=== PATIENT | male | born 1995 | race Caucasian/White ===

== ENCOUNTER 2019-12-23 13:40 | Emergency (ER) | payer SELFPAY ==
[2019-12-23 14:05] VITALS: BP 149/88; PULSE 100; RESP 18; TEMP 37.2; O2SAT 99
[2019-12-23 14:10] VITALS: RESP 18
[2019-12-23 14:36] LABS: Add Urine Microscopic? NO; Appearance Urine Clear (Clear); Bilirubin Urine Negative (Negative); Blood Urine Negative (Negative); Color Urine Straw (Yellow); Glucose Urine UA Negative (Negative); Ketones Urine Negative (Negative); Leukocyte Esterase Ur Negative LEU/UL (Negative); Nitrate Urine Negative (Negative); Protein Urine Negative (Negative); Specific Grav Ur <= 1.005 (1.010-1.020); Urobilinogen Urine 0.2 mg/dL (0.2-1.0); pH Urine 5.5 (5.0-8.0)
[2019-12-23 14:40] LABS: Basophils Absolute Auto 0.04 K/mm3 (0.00-0.10); Basophils Percent Auto 0.5 % (0.0-1.0); Eosinophils Absolute Auto 0.13 K/mm3 (0.02-0.50); Eosinophils Percent Auto 1.7 % (1.0-6.0); Hemoglobin 15.8 g/dL (14.0-18.0); Immature Granulocyte Absolute 0.08 K/mm3 (0.00-0.00); Lymphocytes Absolute Auto 1.64 K/mm3 (1.10-4.50); Lymphocytes Percent Auto 21.2 % (18.0-42.0); Mean Corpuscular HGB Conc 35.1 g/dL (32.0-36.0); Mean Corpuscular Hemoglobin 29.1 pg (27.0-31.0); Mean Corpuscular Volume 82.9 fL (78.0-102.0); Monocytes Absolute Auto 0.54 K/mm3 (0.10-0.90); Neutrophils Absolute Auto 5.3 K/mm3 (1.7-7.2); Neutrophils Percent Auto 68.6 % (50.0-70.0); Platelet Count Result 267 K/mm3 (150-420); Red Blood Count 5.43 M/mm3 (4.70-6.10); White Blood Count 7.8 K/mm3 (4.8-10.8)
[2019-12-23 14:55] LABS: Influenza Control Valid (Valid)
[2019-12-23 14:57] LABS: Alanine Aminotransferase 35 U/L (16-63); Albumin Level 4.9 g/dL (3.4-5.0); Alkaline Phosphatase 64 U/L (46-116); Anion Gap 14.4 mmol/L (7-16); Aspartate Amino Transferase 18 U/L (15-37); Bilirubin,Total 0.7 mg/dL (0.00-1.00); Blood Urea Nitrogen 10 mg/dL (7-18); Calcium 9.4 mg/dL (8.5-10.1); Carbon Dioxide 28 mmol/L (21-32); Chloride 104 mmol/L (98-108); Estimated CRCL calculation 95 ml/min; Estimated Glomerular Filt Rate > 60; Glucose 124 mg/dL (70-99); Osmolality Calculated 294 mOsm/kg (285-295); Potassium 4.4 mmol/L (3.5-5.1); Sodium 142 mmol/L (136-145); Total Protein 8.3 g/dL (6.4-8.2)
--- NOTE | 2019-12-23 16:03 | ED.GENADULT ---
HPI - General Adult General Chief complaint: Unspecified Stated complaint: dizzness light headed and nausea History of Present Illness HPI narrative: this 24-year-old male complains of having a weird feeling in his head, tingling in the temporal area. This occurs multiple times per day, lasts for about 3 hours. It is associated with feeling his head is spinning but not actually having things around him spin. When he has these symptoms he becomes nauseated. He denies decreased hearing or associated tinnitus. No nasal congestion or cough. He did have a sore throat 2 days ago which lasted for a couple of hours. He denies numbness weekly weakness or difficulty with walking. He has a very long history of occasional tinnitus but nothing new). Related Data Allergies Allergy/AdvReac Type Severity Reaction Status Date / Time No Known Allergies Allergy Verified 11/23/19 11:39 [facility] Social History Social History (Updated 11/23/19 @ 11:40 by Sonia Zacarias MA) Smoking status: Never smoker Alcohol intake: never Substance use: never Substance use type: does not use Gender identity (if verbalized by the patient): Male Spiritual care concerns: No Course Vital Signs Vital signs: Vital Signs Temperature 37.2 C 12/23/19 14:05 Pulse Rate 100 12/23/19 14:05 Respiratory Rate 18 12/23/19 14:05 Blood Pressure 149/88 H 12/23/19 14:05 Pulse Oximetry 99 12/23/19 14:05 Temperature 37.2 C 12/23/19 14:05 Pulse Rate 104 H 12/23/19 16:12 Respiratory Rate 20 12/23/19 16:12 Blood Pressure 142/80 H 12/23/19 16:12 Pulse Oximetry 97 12/23/19 16:12 Medical Decision Making Vital Signs Vital Signs: Vital Signs Temperature 37.2 C 12/23/19 14:05 Pulse Rate 100 12/23/19 14:05 Respiratory Rate 18 12/23/19 14:05 Blood Pressure 149/88 H 12/23/19 14:05 Pulse Oximetry 99 12/23/19 14:05 Temperature 37.2 C 12/23/19 14:05 Pulse Rate 104 H 12/23/19 16:12 Respiratory Rate 20 12/23/19 16:12 Blood Pressure 142/80 H 12/23/19 16:12 Pulse Oximetry 97 12/23/19 16:12 Lab Data Result diagrams: 12/23/19 14:35 12/23/19 14:35 Labs: Lab Results 12/23/19 12/23/19 12/23/19 Range/Units 14:17 14:22 14:35 WBC 7.8 (4.8-10.8) K/mm3 RBC 5.43 (4.70-6.10) M/mm3 Hgb 15.8 (14.0-18.0) g/dL Hct 45.0 (40.0-54.0) % MCV 82.9 (78.0-102.0) fL MCH 29.1 (27.0-31.0) pg MCHC 35.1 (32.0-36.0) g/dL RDW 12.0 (11.6-14.4) % Plt Count 267 (150-420) K/mm3 MPV 10.0 (8.7-11.0) fl Immature Gran % (Auto) 1.0 H (0.0-0.0) % Neut % (Auto) 68.6 (50.0-70.0) % Lymph % (Auto) 21.2 (18.0-42.0) % [place] % (Auto) 7.0 (2.0-11.0) % Eos % (Auto) 1.7 (1.0-6.0) % Baso % (Auto) 0.5 (0.0-1.0) % Lymph # (Auto) 1.64 (1.10-4.50) K/mm3 [place] # (Auto) 0.54 (0.10-0.90) K/mm3 Eos # (Auto) 0.13 (0.02-0.50) K/mm3 Baso # (Auto) 0.04 (0.00-0.10) K/mm3 Abs Immat Gran (auto) 0.08 H (0.00-0.00) K/mm3 Absolute Neuts (auto) 5.3 (1.7-7.2) K/mm3 Absolute Nucleated RBC 0.00 (0.00-0.00) K/mm3 Nucleated RBC % 0.0 (0-0.0) % Sodium (136-145) mmol/L Potassium (3.5-5.1) mmol/L Chloride (98-108) mmol/L Carbon Dioxide (21-32) mmol/L Anion Gap (7-16) mmol/L BUN (7-18) mg/dL Creatinine (0.70-1.30) mg/dL Estim Creat Clear Calc ml/min Estimated GFR (59 - ) Glucose (70-99) mg/dL Calculated Osmolality (285-295) mOsm/kg Calcium (8.5-10.1) mg/dL Total Bilirubin (0.00-1.00) mg/dL AST (15-37) U/L ALT (16-63) U/L Alkaline Phosphatase (46-116) U/L Total Protein (6.4-8.2) g/dL Albumin (3.4-5.0) g/dL Urine Color Straw (Yellow) Urine Appearance Clear (Clear) Urine pH 5.5 (5.0-8.0) Ur Specific [place] <= 1.005 L (1.010-1.020) Urine Protein Negative (Negative) Urine Glucose (UA) Negative (Neg
[2019-12-23 16:12] VITALS: BP 142/80; PULSE 104; RESP 20; O2SAT 97
== END 2019-12-23 16:12 | disposition home or self-care (01) ==
PROVIDERS: Emergency Provider Family Medicine
DX: H81.20 Vestibular neuronitis, unspecified ear (principal)
CPT/HCPCS: 36415; 80053; 81003; 85025; 87804; 99283

== ENCOUNTER 2019-12-30 20:19 | Emergency (ER) | payer SELFPAY ==
[2019-12-30 20:25] VITALS: BP 143/95; PULSE 96; RESP 16; TEMP 36.7; O2SAT 98
--- NOTE | 2019-12-30 20:36 | ED.DIZZY ---
HPI - Dizziness General Chief Complaint: Dizziness Stated Complaint: dizzy/weak Time Seen by Provider: 12/30/19 20:36 Source: patient Mode of arrival: ambulatory Limitations: no limitations History of Present Illness HPI Narrative: 24-year-old man comes in today complaining of dizziness that makes him feel like he is spinning, nausea, vomiting and weakness. He states he had similar symptoms a few weeks ago but the symptoms he had today while driving to [place], were much worse. He could only drive for short distances. He had cough and cold symptoms last week and it made his ears feel like they were full and he had decreased hearing but he has improved since. He states that he has a history of ringing in his ears. MD elicited complaint: dizziness and vertigo Onset (ago): day(s) Timing: sudden onset and episodic Severity: severe Description: room spinning Context: recent illness History of similar symptoms: Yes Exacerbating factors: movement/ambulation Relieving factors: remaining still Associated symptoms: nausea, vomiting and weakness Related Data Allergies Allergy/AdvReac Type Severity Reaction Status Date / Time No Known Allergies Allergy Verified 11/23/19 11:39 Review of Systems Constitutional: Constitutional: Denies chills, Denies fever(s) and Reports weakness Eyes: Eyes: Denies change in vision and Denies photophobia ENT: Denies dysphagia, Denies nasal congestion and Denies sore throat Cardiovascular: Cardiovascular: Denies chest pain and Denies radiating jaw, neck or arm pain Respiratory: Respiratory: Denies cough, Denies dyspnea and Denies wheezing Gastrointestinal: Gastrointestinal: Denies abdominal pain, Denies diarrhea, Reports nausea and Reports vomiting Musculoskeletal: Musculoskeletal: Denies back pain, Denies arthralgias and Denies joint swelling Integumentary/Breasts: Skin/Breast: Denies pruritus, Denies erythema and Denies rash Neurologic: Reports vertigo, Denies syncope, Denies focal weakness, Denies numbness and Reports weakness Psychiatric: Psychiatric: Denies anxiety and Denies depression Hematologic/Lymphatic: Hematologic/Lymphatic: Denies easy bleeding and Denies easy bruising Allergic/Immunologic: Allergic/Immunologic: Denies lip swelling and Denies wheezing PMFSH Past Medical History Medical History (Updated 12/30/19 @ 20:57 by Jacky Larkin MD) Back injury Surgical History Surgical History No history of previous surgery Social History Social History Smoking status: Never smoker Alcohol intake: never Substance use: never Substance use type: does not use Gender identity (if verbalized by the patient): Male Spiritual care concerns: No Exam Const: General: healthy appearing, no acute distress and alert Orientation/consciousness: patient oriented x3 HENMT: Ears: TM's normal bilaterally and EAC's normal Face and sinus: normal facial exam Mouth: Yes Normal oral and palatal mucosa present and Yes moist mucous membranes Throat: posterior oropharynx normal and uvula midline Eyes: Conjunctivae: conjunctivae normal Pupils: Equal, round and reactive pupils present EOM: EOMs intact bilaterally Neck: Neck: normal visual inspection and no lymphadenopathy Resp: Effort & Inspection: normal respiratory effort and not labored Auscultation: clear to auscultation bilaterally, no rales, no rhonchi and no wheezes Cardio: Rate: regular rate Rhythm: regular rhythm Heart sounds: no murmurs GI: Other: nontender, nondistended, no masses Skin: General skin exam: normal color, no jaundice and no pallor Rashes: no rashes Neuro: General: patient oriented x3, moves all extremities, no focal motor deficits and CN's II-XI intact bilaterally Speech: normal speech Other: normal [id number], normal gait Extrem: General: normal to inspection and no clubbi
[2019-12-30 21:08] VITALS: RESP 14; O2SAT 99
== END 2019-12-30 21:09 | disposition home or self-care (01) ==
PROVIDERS: Emergency Provider Emergency Medicine
DX: R42 Dizziness and giddiness (principal)
CPT/HCPCS: 99283

== ENCOUNTER 2020-03-02 13:17 | Emergency (ER) | payer SELFPAY ==
--- NOTE | ~2020-03-02 | CT_ITS ---
EXAMINATION: CT abdomen pelvis w con DATE: 03/02/2020 14:42 INDICATION: Mid abdominal pain and right lower quadrant tenderness. TECHNIQUE: Computed tomography (CT) of the abdomen and pelvis was performed . with 100 mL Omnipaque-3 50 intravenous contrast. Automated exposure control and iterative reconstruction technique were emplo yed. The dose-length product was 574.59 mGy-cm. COMPARISON: None FINDINGS: Lung bases are clear. Heart size is normal. No pericardial or pleural effusion. Liver, gallbladder, s pleen, pancreas, bilateral adrenal glands and kidneys are normal. 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 No bowel obstruction. The gas-filled appendix is normal. Bladder is normal. No free intr aperitoneal gas or fluid. No pathologically enlarged abdominal or pelvic lymphadenopathy. Bones are u nremarkable. IMPRESSION: 1. No acute intra-abdominal/pelvic process. Specifically the appendix and gallbladder are normal. 2. Intestinal malrotation. No volvulus or obstruction. Reviewed, dictated and finalized at location A. IMPRESSION: 1. No acute intra-abdominal/pelvic process. Specifically the appendix and gallb ladder are normal. 2. Intestinal malrotation. No volvulus or obstruction.
[2020-03-02 13:20] VITALS: BP 143/98; PULSE 97; RESP 18; TEMP 37.2; O2SAT 100
[2020-03-02 13:36] LABS: Basophils Percent Auto 0.5 % (0.2-1.2); Eosinophils Absolute Auto 0.2 K/mm3 (0-0.3); Eosinophils Percent Auto 2.4 % (0-4.4); Hematocrit 47.2 % (42.0-52.0); Hemoglobin 16.4 g/dL (14.0-18.0); Immature Granulocyte Absolute 0.05 K/mm3 (0.00-0.031); Immature Granulocyte Percent A 0.6 % (0-0.5); Lymphocytes Absolute Auto 2.67 K/mm3 (0.9-3.2); Lymphocytes Percent Auto 31.7 % (18.3-44.2); Mean Corpuscular HGB Conc 34.7 g/dl (32-36); Mean Corpuscular Hemoglobin 28.9 pg (26-34); Mean Corpuscular Volume 83.2 fl (80-100); Mean Platelet Volume 10.2 fl (7.4-10.4); Monocytes Absolute Auto 0.7 K/mm3 (0.1-0.6); Monocytes Percent Auto 7.7 % (2.6-8.5); Neutrophils Absolute Auto 4.8 K/mm3 (1.3-6.7); Neutrophils Percent Auto 57.1 % (45.5-73.1); Platelet Count Result 284 k/mm3 (150-375); Red Blood Count 5.67 M/mm3 (4.6-6.20); Red Cell Distribution Width 11.9 % (11.5-14.5); White Blood Count 8.4 K/mm3 (4.5-10.0)
--- NOTE | 2020-03-02 13:38 | ED.ABDPAIN ---
HPI - Abdominal Pain General Chief Complaint: Abdominal Pain Stated Complaint: abd pain Time Seen by Provider: 03/02/20 13:19 Source: patient Mode of arrival: ambulatory Limitations: no limitations History of Present Illness HPI narrative: Patient is a 24-year-old male who presents with acute onset periumbilical abdominal pain with a few loose stools patient notes generalized aching nothing is made it better or worse denies vomiting. Patient denies any similar current sick contacts and has not taken anything for symptoms Related Data Allergies Allergy/AdvReac Type Severity Reaction Status Date / Time No Known Allergies Allergy Verified 03/02/20 13:25 Review of Systems Review of Systems: All systems reviewed & are unremarkable except as noted in HPI and below PMFSH Past Medical History Medical History Back injury Surgical History Surgical History No history of previous surgery Social History Social History Smoking status: Never smoker Alcohol intake: never Substance use: never Substance use type: does not use Gender identity (if verbalized by the patient): Male Spiritual care concerns: No Exam Narrative: Exam Narrative: GENERAL: Well-appearing, well-nourished, and in no acute distress. HEAD: Normocephalic, atraumatic. EYES: PERRLA and EOMI. ENT: Nares clear, no rhinorrhea or epistaxis. Mucous membranes moist. CHEST: Clear to auscultation. No respiratory distress. No wheezes rales or rhonchi HEART: Regular rate and rhythm. No murmur heard. Normal peripheral pulses. ABDOMEN: Soft, right lower quadrant periumbilical tenderness to palpation, nondistended EXTREMITIES: Normal range of motion. No edema. SKIN: Warm, dry, no rash. NEURO: No focal deficits. Alert and oriented x3. PSYCH: Normal mood and affect. Course Course Emergency Course: Patient in the room in no distress aware of case findings treatment plan and diagnosis agreeing to follow-up as directed Vital Signs Vital signs: Vital Signs Temperature 99.0 F 03/02/20 13:20 Pulse Rate 97 03/02/20 13:20 Respiratory Rate 18 03/02/20 13:20 Blood Pressure 143/98 H 03/02/20 13:20 Pulse Oximetry 100 03/02/20 13:20 Temperature 99.0 F 03/02/20 13:20 Pulse Rate 97 03/02/20 13:20 Respiratory Rate 18 03/02/20 13:20 Blood Pressure 143/98 H 03/02/20 13:20 Pulse Oximetry 100 03/02/20 13:20 MDM - Abdominal Pain MDM Narrative Medical decision making narrative: Patient in the room in no distress aware of case findings treatment plan and diagnosis agreeing to follow-up as directed or to return if symptoms worsen or concerns. Patient is afebrile nontoxic-appearing no distress. Patient able to tolerate p.o. intake without difficulty Lab Data Result diagrams: 03/02/20 13:28 03/02/20 15:45 Labs: Lab Results 03/02/20 03/02/20 03/02/20 Range/Units 13:28 13:42 14:25 WBC 8.4 (4.5-10.0) K/mm3 RBC 5.67 (4.6-6.20) M/mm3 Hgb 16.4 (14.0-18.0) g/dL Hct 47.2 (42.0-52.0) % MCV 83.2 (80-100) fl MCH 28.9 (26-34) pg MCHC 34.7 (32-36) g/dl RDW 11.9 (11.5-14.5) % Plt Count 284 (150-375) k/mm3 MPV 10.2 (7.4-10.4) fl Immature Gran % (Auto) 0.6 H (0-0.5) % Neut % (Auto) 57.1 (45.5-73.1) % Lymph % (Auto) 31.7 (18.3-44.2) % [place] % (Auto) 7.7 (2.6-8.5) % Eos % (Auto) 2.4 (0-4.4) % Baso % (Auto) 0.5 (0.2-1.2) % Lymph # (Auto) 2.67 (0.9-3.2) K/mm3 [place] # (Auto) 0.7 H (0.1-0.6) K/mm3 Eos # (Auto) 0.2 (0-0.3) K/mm3 Baso # (Auto) 0.0 (0.0-0.1) K/mm3 Abs Immat Gran (auto) 0.05 H (0.00-0.031) K/mm3 Absolute Neuts (auto) 4.8 (1.3-6.7) K/mm3 Absolute Nucleated RBC 0.0 (0.0-0.012) K/mm3 Nucleated RBC % 0.0 (0.0-0.2) % Sodium
[2020-03-02 13:50] LABS: Add Urine Microscopic? NO; Appearance Urine Clear (Clear); Bilirubin Urine Negative (Negative); Blood Urine Negative (Negative); Color Urine Yellow (Yellow); Glucose Urine UA Negative (Negative); Ketones Urine Negative (Negative); Leukocyte Esterase Ur Negative LEU/UL (Negative); Nitrate Urine Negative (Negative); Protein Urine Negative (Negative); Specific Grav Ur 1.015 (1.001-1.035); Urobilinogen Urine Negative mg/dL (<2.0)
[2020-03-02] MEDS: SODIUM CHLORIDE 0.9% IV 1,000 ML 999 ML IV CONT (14:00)
[2020-03-02 14:42] LABS: Estimated CRCL calculation 103 ml/min; Estimated Glomerular Filt Rate > 60
[2020-03-02 16:23] LABS: Alanine Aminotransferase 29 U/L (4-50); Albumin Level 4.8 g/dL (3.5-5.1); Alkaline Phosphatase 67 U/L (38-126); Aspartate Amino Transferase 27 U/L (17-59); Bilirubin,Total 0.6 mg/dL (0.2-1.3); Blood Urea Nitrogen 15 mg/dL (9-20); Calcium 9.3 mg/dL (8.4-10.2); Carbon Dioxide 28 mmol/L (22-30); Chloride 103 mmol/L (98-107); Estimated CRCL calculation 112 ml/min; Estimated Glomerular Filt Rate > 60; Glucose 100 mg/dL (75-110); Lipase 65 U/L (23-300); Potassium 4.3 mmol/L (3.4-5.0); Sodium 138 mmol/L (137-145)
[2020-03-02 17:00] VITALS: BP 142/70; PULSE 90; RESP 16; O2SAT 99
== END 2020-03-02 17:10 | disposition home or self-care (01) ==
PROVIDERS: Emergency Provider Family Medicine
DX: R10.33 Periumbilical pain (principal)
CPT/HCPCS: 36415; 74177; 80053; 81003; 83690; 85025; 96360; 99284; J7030; Q9967

== ENCOUNTER 2021-01-20 13:30 | Emergency (ER) | payer SELFPAY ==
[2021-01-20 13:34] VITALS: BP 151/83; PULSE 99; RESP 16; TEMP 36.6; O2SAT 100
--- NOTE | 2021-01-20 13:43 | ED.DIZZY ---
HPI - Dizziness General Chief Complaint: Dizziness Stated Complaint: N/V, dizziness Time Seen by Provider: 01/20/21 13:42 History of Present Illness HPI Narrative: Dizziness and nausea for the past 30 minutes. Started while driving. Feels like spinning. Exacerbated by sudden movements. He has had similar symptoms in the past, but never this severe. He reports intermittent tinnitus, not related to the dizziness. Related Data Allergies Allergy/AdvReac Type Severity Reaction Status Date / Time No Known Allergies Allergy Verified 01/20/21 13:39 Review of Systems Review of Systems: All systems reviewed & are unremarkable except as noted in HPI and below Constitutional: Constitutional: Denies chills, Denies fever(s) and Denies weakness Eyes: Eyes: Reports no additional eye complaints ENT: Reports dizziness and Denies sore throat Cardiovascular: Cardiovascular: Denies chest pain and Denies rapid heart rate Respiratory: Respiratory: Denies dyspnea Gastrointestinal: Gastrointestinal: Reports nausea Neurologic: Reports system reviewed and no additional complaints, except as documented Psychiatric: Psychiatric: Denies anxiety PMFSH Past Medical History Medical History (Updated 01/21/21 @ 00:00 by Kong Kiran) Back injury Surgical History Surgical History No history of previous surgery Family History Family History Grandparent , maternal grandmother had diabetes Diabetes mellitus Social History Social History Smoking status: Never smoker Alcohol intake: never Substance use: never Substance use type: does not use Gender identity (if verbalized by the patient): Male Spiritual care concerns: No Exam Const: General: healthy appearing, no acute distress and alert Nutritional Appearance: well nourished Orientation/consciousness: patient oriented x3 HENMT: Head: normal to inspection Ears: TM's normal bilaterally and EAC's normal Face and sinus: normal facial exam Mouth: Yes moist mucous membranes Eyes: Conjunctivae: conjunctivae normal Pupils: Equal, round and reactive pupils present EOM: EOMs intact bilaterally Neck: Neck: normal visual inspection and no lymphadenopathy Resp: Effort & Inspection: normal respiratory effort Auscultation: clear to auscultation bilaterally, no rales, no rhonchi and no wheezes Cardio: Jugular venous distension: no JVD Rate: regular rate Rhythm: regular rhythm Heart sounds: no murmurs GI: Inspection: non-distended GI Palp: Yes Soft to palpation and No Tenderness to palpation present (GI) Skin: General skin exam: normal color Neuro: General: patient oriented x3, moves all extremities, no focal motor deficits and CN's II-XI intact bilaterally Cranial nerves: Yes Nystagmus not present Speech: normal speech Gait exam (Neuro): Normal gait present Extrem: General: no edema Psych: Appearance: well kempt Affect: normal affect Course Vital Signs Vital signs: Vital Signs Temperature 36.6 C 01/20/21 13:34 Pulse Rate 99 01/20/21 13:34 Respiratory Rate 16 01/20/21 13:34 Blood Pressure 151/83 H 01/20/21 13:34 Pulse Oximetry 100 01/20/21 13:34 Temperature 36.6 C 01/20/21 13:34 Pulse Rate 92 01/20/21 15:34 Respiratory Rate 18 01/20/21 15:34 Blood Pressure 150/75 H 01/20/21 15:34 Pulse Oximetry 100 01/20/21 15:34 MDM - Dizziness MDM Narrative Medical decision making narrative: Most likely BPPV. No nystagmus, but asymptomatic at the time of exam. Differential Diagnosis Differential diagnosis: Likely benign paroxysmal positional vertigo, orthostatic hypotension and acute vestibular neuronitis Medical Records Attestation: I reviewed the patient's medical records. Lab Data Attestation: I reviewed the patient's lab results. Result diagrams:
--- NOTE | 2021-01-20 13:55 | ECG_ITS ---
Measurements Intervals [place] Rate: 79 P: 51 [place]: 137 QRS: 60 QRSD: 95 T: 60 QT: 330 QTc: 379 Interpretive Statements SINUS RHYTHM WITH SINUS ARRHYTHMIA BASELINE ARTIFACT- I, II, III, AVR, AVL, AVF NORMAL ECG Electronically Signed On 01-20-2021 14:17:07 CDT by Kemar Rankin D.O.
[2021-01-20] MEDS: MECLIZINE HCL 25 MG TABLET PO (14:17)
[2021-01-20] MEDS: SODIUM CHLORIDE 0.9% IV 1,000 ML 999 ML IV CONT (14:18)
[2021-01-20 14:21] LABS: Basophils Absolute Auto 0.1 K/mm3 (0.0-0.1); Basophils Percent Auto 0.7 % (0.2-1.2); Eosinophils Absolute Auto 0.3 K/mm3 (0-0.3); Eosinophils Percent Auto 3.6 % (0-4.4); Hematocrit 47.3 % (42.0-52.0); Hemoglobin 16.6 g/dL (14.0-18.0); Immature Granulocyte Absolute 0.07 K/mm3 (0.00-0.031); Immature Granulocyte Percent A 0.9 % (0-0.5); Lymphocytes Absolute Auto 2.07 K/mm3 (0.9-3.2); Lymphocytes Percent Auto 27.4 % (18.3-44.2); Mean Corpuscular HGB Conc 35.1 g/dl (32-36); Mean Corpuscular Hemoglobin 29.1 pg (26-34); Mean Corpuscular Volume 82.8 fl (80-100); Mean Platelet Volume 9.9 fl (7.4-10.4); Monocytes Absolute Auto 0.6 K/mm3 (0.1-0.6); Monocytes Percent Auto 8.1 % (2.6-8.5); Neutrophils Absolute Auto 4.5 K/mm3 (1.3-6.7); Neutrophils Percent Auto 59.3 % (45.5-73.1); Platelet Count Result 262 k/mm3 (150-375); Red Blood Count 5.71 M/mm3 (4.6-6.20); Red Cell Distribution Width 12.1 % (11.5-14.5); White Blood Count 7.6 K/mm3 (4.5-10.0)
[2021-01-20 14:33] LABS: Alanine Aminotransferase 30 U/L (4-50); Albumin Level 4.7 g/dL (3.5-5.1); Alkaline Phosphatase 72 U/L (38-126); Anion Gap 6 mmol/L (8-16); Aspartate Amino Transferase 26 U/L (17-59); Bilirubin,Total 0.5 mg/dL (0.2-1.3); Blood Urea Nitrogen 11 mg/dL (9-20); Calcium 9.4 mg/dL (8.4-10.2); Carbon Dioxide 31 mmol/L (22-30); Chloride 104 mmol/L (98-107); Estimated CRCL calculation 111 ml/min; Estimated Glomerular Filt Rate > 60; Glucose 117 mg/dL (75-110); Potassium 4.2 mmol/L (3.4-5.0); Sodium 141 mmol/L (137-145)
[2021-01-20 15:34] VITALS: BP 150/75; PULSE 92; RESP 18; O2SAT 100
== END 2021-01-20 15:36 | disposition home or self-care (01) ==
PROVIDERS: Emergency Provider Emergency Medicine; PCP Emergency Medicine
DX: R42 Dizziness and giddiness (principal)
CPT/HCPCS: 36415; 80053; 85025; 93005; 96360; 99283; A9270; J7030

== ENCOUNTER 2021-02-04 02:03 | Emergency (ER) | payer SELFPAY ==
--- NOTE | ~2021-02-04 | CT_ITS ---
EXAMINATION: CT brain wo con DATE: 02/04/2021 03:02 INDICATION: Vertigo, tinnitus, nausea and vomiting. TECHNIQUE: Computed tomography (CT) of the head was performed without intravenous contrast. Sagittal and coronal reconstructions were performed. The mA was adjusted according to patient size. Iterative reconstruction technique was employed. The dose-length product was 681.00 mGy-cm. COMPARISON: None FINDINGS: No acute intracranial hemorrhage, acute infarction or abnormal extra axial fluid collection. Ventricl es are normal and symmetric. No mass/mass effect. The orbits, paranasal sinuses and mastoid air cells are normal. Relatively symmetric mild hypertrophic calvarial thickening along the coronal suture on both the left and right. IMPRESSION: 1. Normal brain. No acute intracranial process. Reviewed, dictated and finalized at location A.
[2021-02-04 02:05] VITALS: BP 142/103; PULSE 81; RESP 18; TEMP 37.1; O2SAT 97
--- NOTE | 2021-02-04 02:14 | PC.NURSE ---
0210-Patient given ice chips.
[2021-02-04] MEDS: PROCHLORPERAZINE MALEATE 5 MG TABLET PO (02:43)
[2021-02-04 02:49] LABS: Basophils Absolute Auto 0.04 K/mm3 (0.00-0.10); Basophils Percent Auto 0.4 % (0.0-1.0); Eosinophils Percent Auto 3.3 % (1.0-6.0); Hematocrit 46.8 % (40.0-54.0); Hemoglobin 16.3 g/dL (14.0-18.0); Immature Granulocyte Absolute 0.09 K/mm3 (0.00-0.00); Lymphocytes Absolute Auto 2.91 K/mm3 (1.10-4.50); Lymphocytes Percent Auto 32.1 % (18.0-42.0); Mean Corpuscular HGB Conc 34.8 g/dL (32.0-36.0); Mean Corpuscular Hemoglobin 28.7 pg (27.0-31.0); Mean Corpuscular Volume 82.5 fL (78.0-102.0); Monocytes Absolute Auto 0.74 K/mm3 (0.10-0.90); Monocytes Percent Auto 8.2 % (2.0-11.0); Platelet Count Result 266 K/mm3 (150-420); Red Blood Count 5.67 M/mm3 (4.70-6.10); Red Cell Distribution Width 11.9 % (11.6-14.4); White Blood Count 9.1 K/mm3 (4.8-10.8)
[2021-02-04 02:50] LABS: Add Urine Microscopic? NO; Appearance Urine Clear (Clear); Bilirubin Urine Negative (Negative); Blood Urine Negative (Negative); Color Urine Yellow (Yellow); Glucose Urine UA Negative (Negative); Ketones Urine Negative (Negative); Leukocyte Esterase Ur Negative (Negative); Nitrate Urine Negative (Negative); Protein Urine Negative (Negative); Specific Grav Ur <= 1.005 (1.010-1.020); Urobilinogen Urine 0.2 mg/dL (0.2-1.0)
--- NOTE | 2021-02-04 02:55 | ED.DIZZY ---
HPI - Dizziness General Chief Complaint: Dizziness Stated Complaint: Nausea, Dizziness Source: patient Mode of arrival: EMS Limitations: no limitations History of Present Illness HPI Narrative: Patient states he woke with vertigo, and could not hear anything due to tinnitus. He called 911 and was brought in. On the way in he was given zofan 4mg odt. He says his nausea which he had is resolved and the vertigo is better. He says he has taken meclizine in the past and it has not helped. Her describes the vertigo as moderately severe to severe and ongoing, but he refuses ketorolac that was offered. MD elicited complaint: dizziness Pertinent past history: other (vertigo unclear etiology) Onset (ago): minute(s) Timing: sudden onset Severity: moderate Description: sense of movement and room spinning History of similar symptoms: Yes Relieving factors: nothing Associated symptoms: nausea and nasal congestion Related Data Allergies Allergy/AdvReac Type Severity Reaction Status Date / Time No Known Allergies Allergy Verified 01/20/21 13:39 Review of Systems Constitutional: Constitutional: Reports no additional constitutional complaints Eyes: Eyes: Reports no additional eye complaints ENT: Reports system reviewed and no additional complaints, except as documented Cardiovascular: Cardiovascular: Reports no additional cardiovascular complaints Respiratory: Respiratory: Reports no additional respiratory complaints Gastrointestinal: Gastrointestinal: Reports no additional gastrointestinal complaints Genitourinary: Genitourinary: Reports no additional male genitourinary complaints Musculoskeletal: Musculoskeletal: Reports no additional musculoskeletal complaints Integumentary/Breasts: Skin/Breast: Reports system reviewed and no additional complaints, except as docu Neurologic: Reports system reviewed and no additional complaints, except as documented and Reports as per HPI Psychiatric: Psychiatric: Reports no additional psychiatric complaints Endocrine: Endocrine: Reports no additional endocrine complaints Hematologic/Lymphatic: Hematologic/Lymphatic: Reports no additional hematologic/lymphatic complaints Allergic/Immunologic: Allergic/Immunologic: Reports no additional allergic/immunologic complaints [facility] Past Medical History Medical History Back injury No significant past medical history Vertigo Surgical History Surgical History No history of previous surgery Family History Family History Grandparent , maternal grandmother had diabetes Diabetes mellitus Social History Social History Smoking status: Never smoker Alcohol intake: never Substance use: never Substance use type: does not use Gender identity (if verbalized by the patient): Male Spiritual care concerns: No Exam Const: General: healthy appearing and no acute distress Orientation/consciousness: patient oriented x3 HENMT: Head: normal to inspection Ears: TM's normal bilaterally General nose exam: Normal external nose present Face and sinus: normal facial exam Mouth: Yes Normal oral and palatal mucosa present Throat: posterior oropharynx normal Eyes: Conjunctivae: conjunctivae normal Neck: Neck: normal visual inspection Chest: Chest palpation & inspection: normal inspection of the chest Resp: Effort & Inspection: normal respiratory effort Auscultation: clear to auscultation bilaterally Cardio: Rate: regular rate Rhythm: regular rhythm GI: GI Palp: Yes Soft to palpation (nontender) Skin: General skin exam: normal color Neuro: General: patient oriented x3, moves all extremities, no meningeal signs, no focal motor deficits and CN's II-XI intact bilaterally Speech: normal speech Other: Nystagmus with moving eye
[2021-02-04 03:05] LABS: Alanine Aminotransferase 54 U/L (16-63); Albumin Level 4.5 g/dL (3.4-5.0); Alkaline Phosphatase 86 U/L (46-116); Amphetamine Screen Urine Negative (Negative); Anion Gap 8 mmol/L (8-16); Aspartate Amino Transferase 24 U/L (15-37); Barbiturate Screen Urine Negative (Negative); Benzodiazepines Screen Urine Negative (Negative); Bilirubin,Total 0.5 mg/dL (0.00-1.00); Blood Urea Nitrogen 14 mg/dL (7-18); Calcium 9.2 mg/dL (8.5-10.1); Cannabinoid Screen Urine Negative (Negative); Carbon Dioxide 30 mmol/L (21-32); Chloride 101 mmol/L (98-108); Cocaine Screen Urine Negative (Negative); Estimated CRCL calculation 88 ml/min; Estimated Glomerular Filt Rate > 60; Glucose 123 mg/dL (70-99); Methadone Screen Urine Negative (Negative); Opiate Screen Urine Negative (Negative); Osmolality Calculated 289 mOsm/kg (285-295); Phencyclidine Screen Urine Negative (Negative); Potassium 3.6 mmol/L (3.5-5.1); Sodium 139 mmol/L (136-145); Total Protein 8.1 g/dL (6.4-8.2)
[2021-02-04 03:20] VITALS: BP 137/93; PULSE 82; RESP 18; TEMP 37.1; O2SAT 97
== END 2021-02-04 03:54 | disposition home or self-care (01) ==
PROVIDERS: Emergency Provider Emergency Medicine
DX: R42 Dizziness and giddiness (principal)
CPT/HCPCS: 36415; 70450; 80053; 80307; 81003; 85025; 99283; 99284; A9270

== ENCOUNTER 2021-10-19 17:36 | Emergency (ER) | payer SELFPAY ==
[2021-10-19 17:40] VITALS: BP 132/81; PULSE 91; RESP 18; TEMP 37.1; O2SAT 99
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
[2021-10-19 17:58] VITALS: BP 132/81; PULSE 91; RESP 18; TEMP 37.1; O2SAT 99
[2021-10-21 14:20] LABS: SARS-CoV-2 RNA PCR Negative
== END 2021-10-19 18:15 | disposition home or self-care (01) ==
PROVIDERS: Emergency Provider Nurse Practitioner Family
DX: A08.4 Viral intestinal infection, unspecified (principal); Z20.822 Contact with and (suspected) exposure to COVID-19
CPT/HCPCS: 87426; 87804; 99213; C9803; G0463; U0003; U0005

== ENCOUNTER 2022-04-22 18:44 | Emergency (ER) | payer SELFPAY ==
[2022-04-22 18:52] VITALS: BP 136/83; PULSE 102; RESP 20; TEMP 36.7; O2SAT 98
--- NOTE | 2022-04-22 19:01 | ED.URI ---
HPI - URI/Sore Throat General Chief Complaint: Upper Respiratory Infection Stated Complaint: Cough/Congestion Time Seen by Provider: 04/22/22 19:02 Source: patient and RN notes reviewed Mode of arrival: ambulatory Limitations: no limitations History of Present Illness HPI Narrative: 26-year-old male presents with concern for 10+ day history of rhinorrhea, nasal congestion, postnasal drainage, cough, sore throat. Reports he has been taking DayQuil and NyQuil with little relief. He denies fever, bodies, chills, sweats. MD elicited complaint: cough and sore throat Related Data Home Medications Medication Instructions Recorded Confirmed meclizine 25 mg tablet 25 mg PO BID PRN Dizziness Or 04/22/22 04/22/22 Vertigo Allergies Allergy/AdvReac Type Severity Reaction Status Date / Time No Known Allergies Allergy Verified 04/22/22 19:00 Review of Systems Review of Systems: CONSTITUTIONAL: Denies malaise, chills, sweats, or fever. EYES: Denies visual changes, redness, or discharge. ENT: Reports rhinorrhea, congestion, sinus pain, otalgia and sore throat. CARDIOVASCULAR: Denies chest pain, palpitations, or edema. RESPIRATORY: Reports cough. Denies dyspnea. GASTROINTESTINAL: Denies abdominal pain, nausea, vomiting, diarrhea SKIN: Denies rash or itching. MUSCULOSKELETAL: Denies myalgia. NEUROLOGIC: Denies headache. All systems reviewed & are unremarkable except as noted in HPI and below PMFSH Past Medical History Medical History Back injury No significant past medical history Vertigo Surgical History Surgical History No history of previous surgery Family History Family History Grandparent , maternal grandmother had diabetes Diabetes mellitus Social History Social History Smoking status: Never smoker Alcohol intake: never Alcohol use details: denies alcohol use Substance use: never Substance use type: does not use Gender identity (if verbalized by the patient): Male Spiritual care concerns: No Comments At time of signature, agree with nursing past medical, surgical, social and family history. There is no relevant family history pertinent to the presenting complaint Exam Narrative: GENERAL: Well-appearing, well-nourished, and in no acute distress. HEAD: Normocephalic EYES: PERRLA, conjunctivae clear ENT: Nares clear, turbinates edematous and erythematous. Mucous membranes moist. TM pearly carter with dull light reflex bilaterally; no tragal tenderness. Oropharynx not erythematous without lesions. Tonsils not enlarged and without exudate, no drooling, no hoarseness, no trismus, uvula midline. NECK: Supple. No lymphadenopathy CHEST: Clear to auscultation, breath sounds equal. No wheezing, rhonchi, rales, or stridor. No respiratory distress, speaks in full sentences. HEART: Regular rate and rhythm. No murmur heard. SKIN: Warm, dry, no rash. NEURO: Alert and oriented x3. PSYCH: Normal mood and affect Course Course Emergency Course: Patient is aware of diagnosis, understands and agrees to treatment plan. Anticipatory guidance given. Patient agrees to follow-up as directed and is aware of reasons to seek care at the emergency department. Portions of this record may have been created with voice recognition software Level of Care: Express Care Visit Vital Signs Vital signs: Vital Signs Temperature 98.1 F 04/22/22 18:52 Pulse Rate 102 H 04/22/22 18:52 Respiratory Rate 04/22/22 18:52 Blood Pressure 136/83 04/22/22 18:52 Pulse Oximetry 98 04/22/22 18:52 Oxygen Delivery Room Air 04/22/22 18:52 Temperature 98.1 F 04/22/22 18:52 Pulse Rate 102 H 04/22/22 18:52 Respiratory Rate 04/22/22 18:52 Blood Pressure 136/83 04/22/22 18:52 Pulse O
== END 2022-04-22 19:16 | disposition home or self-care (01) ==
PROVIDERS: Emergency Provider Nurse Practitioner; PCP Nurse Practitioner Family
DX: J32.9 Chronic sinusitis, unspecified (principal); J40 Bronchitis, not specified as acute or chronic
CPT/HCPCS: 99213; G0463

== ENCOUNTER 2025-02-04 16:36 | Emergency (ER) | payer SELFPAY ==
--- OUTSIDE RECORDS SUMMARY | 2025-02-04 16:39 | XMS_ITS | Clinical Summary ---
Author Organization [facility] Address [address] [place] [address] Phone Care Team Providers Care Tool Crib Manager Name Role Phone Melissa Garrison MD Unavailable Provider, None Primary Care Provider Unavailabl e Allergies No known active allergies Medications meclizine (ANTIVERT) 25 MG Tablet Take 1 Tablet by mouth 3 times daily as needed for Dizziness. 30 Tablet 10/10/2021 Active naproxen (NAPROSYN) 500 MG Tablet Take 1 Tablet by mouth 2 times daily as needed for Moderate or more severe pain. 20 Tablet 11/21/2024 Active traMADol (ULTRAM) 50 MG TabletIndicatio ns:Pain Take 1 Tablet by mouth every 8 hours as needed for Moderate or more severe pain. 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 - 11/21/2024 12:21 PM AUTOMATIC NAILING MACHINE FEEDER Emergency [facility] Emergency [address] [place] [address] Yaron Bejarano, SANDIP Coccydynia Discharge Disposition: Discharged to home or Selfcare 11/21/2024 Travel from Last 3 Months Social History Tobacco Use Types Packs/Day Years Used Date Smoking Tobacco: Never Smokeless Tobacco: Never Alcohol Use Standard Drinks/Week Comments No 0 (1 standard drink = 0.6 oz pur e alcohol) Sex and Gender Information Value Date Recorded Sex Assigned at Not on file Legal Sex Male 11:09 PM CDT Gender Identity Not on file Sexual Orientation Not on file Last Filed Vital Signs Vital Sign Reading Time Taken Comments Blood Pressure 140/87 11/21/2024 12:21 PM AUTOMATIC NAILING MACHINE FEEDER Pulse 88 11/21/2024 12:21 PM AUTOMATIC NAILING MACHINE FEEDER Temperature 36.4 C (97.6 F) 11/21/2024 10:21 AM AUTOMATIC NAILING MACHINE FEEDER Respiratory Rate 18 11/21/2024 12:21 PM AUTOMATIC NAILING MACHINE FEEDER Oxygen Saturation 98% 11/21/2024 12:21 PM AUTOMATIC NAILING MACHINE FEEDER Inhaled Oxygen Concentration - - Weight 88.5 kg (195 lb) 11/21/2024 10:21 AM AUTOMATIC NAILING MACHINE FEEDER Height 182.9 cm (6') 11/21/2024 10:21 AM AUTOMATIC NAILING MACHINE FEEDER Body Mass Index 26.45 11/21/2024 10:21 AM AUTOMATIC NAILING MACHINE FEEDER Plan of Treatment Health Maintenance Due Date Last Done Comments Hepatitis C Virus (HCV) Screening 1997 Influenza Immunization (#1) 2024 09/21/2012 SARS-COV-2 Immunization ( season) 2024 Respiratory Syncytial Virus (RSV) Immunization (Adult) (1 - 1-dose 75+ series) 2072 Hepatitis B Immunization Completed 000, 07/25/1999, 1997, Additional history exists DTaP/Tdap/Td Immunization Discontinued 2010, 06/26/2003, 03/06/2000, Additional history exists Meningococcal Immunization (ACWY) Aged Out 06/06/2011 No longer eligible based on patient's age to complete this topic TdaP Immunization Completed 06/06/2011 Human Papillomavirus (HPV) Immunization Discontinued 09/21/2012, 07/24/2011 Pneumococcal Immunization Combined Aged Out No longer eligible based on patient's age to complete this topic Rotavirus Immunization Aged Out No lo nger eligible based on patient's age to complete this topic Procedures Procedure Name Priority Date/Time Associated Diagnosis Comments XR LUMBAR SPINE 2 OR 3 VIEWS STAT 11/21/2024 11:35 AM AUTOMATIC NAILING MACHINE FEEDER XR SACRUM & COCCYX STAT 11/21/2024 10 :55 AM AUTOMATIC NAILING MACHINE FEEDER from Last 3 Months Results * XR LUMBAR SPINE 2 OR 3 VIEWS (11/21/2024 11:35 AM AUTOMATIC NAILING MACHINE FEEDER) Anatomical Region Laterality Modality Spine, L-spine N/A Digital Radiogra phy 11/21/2024 12:0 1 PM AUTOMATIC NAILING MACHINE FEEDER Impressions 11/21/2024 12:04 PM AUTOMATIC NAILING MACHINE FEEDER IMPRESSION: No radiographic evidence of acute fracture. Narrative 11/21/2024 12:04 PM AUTOMATIC NAILING MACHINE FEEDER EXAM DESCRIPTION: XR LUMBAR SPINE 2 OR 3 VIEWS REASON FOR STUDY: low back pain after GLF today. TECHNIQUE: 3 radiographic view(s) of the lumbar spine. COMPARISON: 05/18/2023. FINDINGS: Straightening of the normal cervical lordosis, which could be positional or related to muscle spasm. Vertebral body heights are normal and unchanged. No radiographic evidence of fracture or aggressive bone lesion is seen. Intervertebral disc space heights appear normal . Unremarkable visualized soft tissues THIS IS AN ELECTRONICALLY VERIFIED FINAL REPORT 11/21/2024 12:01 PM - Electronically signed by Adam Nieto M.D. MZ: MZ Report ID: [id number] Reading Location: [id number] Procedure Note Adam Nieto MD - 11/21/2024 EXAM DESCRIPTION: XR LUMBAR SPINE 2 OR 3 VIEWS REASON FOR STUDY: low back pain after GLF today. TECHNIQUE: 3 radiographic view(s) of the lumbar spine. COMPARISON: 05/18/2023. FINDINGS: Straightening of the normal cervical lordosis, which could be positional or related to muscle spasm. Vertebral body heights are normal and unchanged. No radiographic evidence of fracture or aggressive bone lesion is seen. Intervertebral disc space heights appear normal . Unremarkable visualized soft tissues THIS IS AN ELECTRONICALLY VERIFIED FINAL REPORT 11/21/2024 12:01 PM - Electronically signed by Adam Nieto M.D. MZ: MZ Report ID: [id number] Reading Location: [id number] IMPRESSION: No radiographic evidence of acute fracture. us Yaron Bejarano PAC IMG DIAGNOSTIC ORDER ALEX Final Result * XR SACRUM & COCCYX (11/21/2024 10:55 AM AUTOMATIC NAILING MACHINE FEEDER) Anatomical Region Laterality Modality Spine, Sacrum, Coccyx N/A Digital Ra diography 11/21/2024 11:1 6 AM AUTOMATIC NAILING MACHINE FEEDER Impressions 11/21/2024 11:18 AM AUTOMATIC NAILING MACHINE FEEDER IMPRESSION: No definite evidence of acute fracture or subluxation involving the sacrum and coccyx. Narrative 11/21/2024 11:18 AM AUTOMATIC NAILING MACHINE FEEDER EXAM DESCRIPTION: XR SACRUM and COCCYX REASON FOR STUDY: tailbone pain after a grond level fall today. TECHNIQUE: 3 radiographic view(s) of the sacrum and coccyx . COMPARISON: 12/29/2023 FINDINGS: There is no definite evidence of acute fracture or subluxation involving the sacrum and coccyx. There are minimal to mild degenerative changes bilateral sacroiliac joints with mild joint space narrowing and minimal sclerosis. The visualized soft tissues are grossly unremarkable. THIS IS AN ELECTRONICALLY VERIFIED FINAL REPORT 11/21/2024 11:16 AM - Electronically signed by Twin Reeves D.O. PS: PS Report ID: [id number] Reading Location: [id number] Procedure Note Twin Reeves DO - 11/21/2024 EXAM DESCRIPTION: XR SACRUM and COCCYX REASON FOR STUDY: tailbone pain after a grond level fall today. TECHNIQUE: 3 radiographic view(s) of the sacrum and coccyx . COMPARISON: 12/29/2023 FINDINGS: There is no definite evidence of acute fracture or subluxation involving the sacrum and coccyx. There are minimal to mild degenerative changes bilateral sacroiliac joints with mild joint space narrowing and minimal sclerosis. The visualized soft tissues are grossly unremarkable. THIS IS AN ELECTRONICALLY VERIFIED FINAL REPORT 11/21/2024 11:16 AM - Electronically signed by Twin Reeves D.O. PS: PS Report ID: [id number] Reading Location: [id number] IMPRESSION: No definite evidence of acute fracture or subluxation involving the sacrum and coccyx. Yaron Bejarano [facility] IMG DIAGNOSTIC ORDER ALEX Final Result from Last 3 Months Insurance [facility] Care Teams Tool Crib Manager Relationship Specialty Start Date End Date Provider, None [place] PCP - General 11/03/24 Melissa Garrison MD [address] [place] [address] [address] [place] [address] Pediatrics 04/14/18
--- OUTSIDE RECORDS SUMMARY | 2025-02-04 16:39 | XMS_ITS | Referral Summary ---
Author Organization [facility] Address [address] [place] [address] Care Team Providers Care Grain Shipper Name Role Phone Unknown, Notinfile Unavailable Unavailable Feldman, Saray Turner BISQUE KILN DRAWER Primary Care Provider [phone] Allergies No known active allergies Medications levETIRAcetam (KEPPRA) 500 mg tablet Take 1 tablet (500 mg total) by mouth 2 (two) times a day. 60 tablet 8 Active ondansetron (ZOFRAN) 4 mg tablet Take 1 tablet (4 mg total) by mouth every 6 (six) hours as needed for nausea 15 tablet 0 Active meclizine (ANTIVERT) 25 mg tablet Take 1 tablet (25 mg total) by mouth 3 (three) times a day as needed for dizziness 30 tablet 1 Active ibuprofen (ADVIL,MOTRIN) 600 mg tabletIndications: Pain Take 1 tablet (600 mg total) by mouth every 6 (six) hours as needed for pain 15 tablet 1 Active ondansetron ODT (ZOFRAN-ODT) 4 mg disintegrating tablet Dissolve 1 tablet oral every 4 hours as needed for nausea or vomiting. 15 tablet 1 Active SUMAtriptan (IMITREX) 50 mg tabletIndications: Migraine Take 1 tablet (50 mg total) by mouth once as needed for migraine May repeat dose once in 2 hours if no relief. Do not exceed 2 doses in 24 hours. 9 tablet 4 05/15/20 25 Active lidocaine (LIDODERM) 5 % Place 1 patch on the skin daily for 14 days Remove & discard patch within 12 hours or as directed by . 14 patch Active Active Problems Problem Noted Date Diagnosed Date Seizure-like activity 06/25/2018 Social History Tobacco Use Types Packs/Day Years Used Date Smoking Tobacco: Former Smokeless Tobacco: Never Alcohol Use Standard Drinks/Week Comments No 0 (1 standard drink = 0.6 oz pur e alcohol) Personal Safety Answer Date Recorded Have you ever been in or are you currently in a harmful physical or emotional relationship or is someone making you feel afraid or unsafe? 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 Gender Identity Not on file Sexual Orientation Not on file Last Filed Vital Signs Vital Sign Reading Time Taken Comments Blood Pressure 126/83 05/15/2024 9:00 PM CDT Pulse 90 05/15/2024 9:35 PM CDT Temperature 36.4 C (97.6 F) 05/15/2024 6:07 PM CDT Respiratory Rate 18 05/15/2024 6:07 PM CDT Oxygen Saturation 97% 05/15/2024 9:35 PM CDT Inhaled Oxygen Concentration - - Weight 86.2 kg (190 lb) 05/15/2024 6:07 PM CDT Height 182.9 cm (6') 05/15/2024 6:07 PM CDT Body Mass Index 25.77 05/15/2024 6:07 PM CDT Plan of Treatment Not on file Insurance [employer] [address] [employer] [place] Care Teams Grain Shipper Relationship Specialty Start Date End Date Saray Feldman NP [address] [place] [id number] PCP - General Nurse Practitioner 05/15/24 Unknown, Notinfile 06/09/18
--- OUTSIDE RECORDS SUMMARY | 2025-02-04 16:39 | XMS_ITS | Continuity of Care Document ---
Author Organization [facility] Address [address] [place] [address] [place] [address] Phone Care Team Providers Care Region Manager Name Role Phone Javid Abdi MD Unavailable Unavailable Allergies, Adverse Reactions, Alerts Substance Reaction Status Criticality No Known Allergies Active No Inform ation Medications Medication Instructions Dosage Effective Dates (start - stop) Status Comments meclizine 25 mg tablet take 1 tablet by oral route 2 times every day as needed as needed 25 MG - Active PRN for vertigo, avoid driving or operate machines Procedures Procedure Date OFFICE/OUTPATIENT VISIT, EST OFFICE/OUTPATIENT VISIT, EST OFFICE/OUTPATIENT VISIT, EST OFFICE/OUTPATIENT VISIT, [facility] Advance Directives Directive Yes / No Effective Date File Name No Information Encounters Encounter Description Practice Location Reason(s) For Visit Diagnoses Date Provider Providers Copied on Encounter OFFICE/OUTPAT IENT VISIT, [facility], [address], [place], [address], tel:[phone] [facility], [place], [facility] vertigo1 (chief complaint) Epidemic vertigo Jin Umana [address], [address] [place], [place], [address], [place]. tel:[phone] OFFICE/OUTPAT IENT VISIT, [facility], [address], [address], [place] tel:[phone] [facility], [place], [facility] vertigo1 (chief complaint) Epidemic vertigo Jin Umana [address], [place], [place], [address], . tel:[phone] OFFICE/OUTPAT IENT VISIT, [facility], [address] [place], [place], [address], tel:[phone] [facility], [place], [facility] vertigo1 (chief complaint) Epidemic vertigo Jin Hua. [address], [place], [place], [address], [place]. tel:[phone] OFFICE/OUTPAT IENT VISIT, [facility], [place], [address] [place], [place], [address], tel:[phone] [facility], [place], [facility] vertigo1 (chief complaint)G ERD1 (chief complaint) Epidemic vertigoGERD w/o esophagitis Jin Hua. [address] [place], [place], [address], . tel:[phone] Family History Family Member Type Diagnosis Age At Onset Brother Problem Alive and well Father Problem GERD Maternal grandfather Problem Diabetes mellitus Mother Problem kidney cancer 43 Father Problem Diabetes mellitus Payers Payer name Insurance type Covered alliance party ID Authoriza tion(s) No Information Social History Type Description Quantity Date Captured Comments Alcohol Use Details No Caffeine Use Details Unknown Tobacco Use Status Current non-smoker Smoking Status Never smoker Sex Male Vital Signs Date / Time: Height Weight BMI Pulse Rate Blood Pressure Temperature Respiratory Rate Body Surface Area Head Circumference BMI percentile Pulse Ox Inhaled Ox 4:45 PM 72.00 in 202.20 lbs 27.4 2 kg/m eter (2) 98 /min 136/88 mm[Hg] 97.7 F 16 /min Chief Complaint And Reason For Visit From encounter dated '01/14/2023 16:45'. vertigo1 (chief complaint). Description: Pt has intermittent positional vertigo with tinnitus. Pt denies any headache. Pt denies any syncope. 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 Pt needs work note regarding his vertigo. Pt states that last time he has vertigo episode was 4 weeks ago, which resolved within 24 hours. Plan Of Treatment Date Type Action Status Referral Ordered: MRI BRAIN W/O & W/DYE ordered History Of Present Illness Encounter Date Complaint History Of Prese nt Illness vertigo1 Pt has intermitt ent positional vertigo with tinnitus. Pt denies any headache. Pt denies any syncope. 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 Pt needs work note regarding his vertigo. Pt states that last time he has vertigo episode was 4 weeks ago, which resolved within 24 hours. 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 Pt denies any chest pain or headache Pt denies any blurred vision. Pt has not needed to use any meclizine at all. Pt needs a medical clearance letter. vertigo1 Pt c/o intermitt ent vertigo feeling for the past 6 months. 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 Pt was feeling fine until 6 months ago. Pt feels intermittent vertigo feeling, worse when he turns his head. Pt denies any blurred vision Pt denies any ear pain. Pt denies any more tinnitus. Pt has chronic sinus congestion. Pt denies any sore throat Pt also states that he has some mild vague headache about once per month with some pressure or throbbing nature Pt denies any photophobia or nausea. Pt has headache chronically without getting worse recently Pt feels nauseated during vertigo Pt denies any vomiting. Pt states that the vertigo occurs daily without any trigger. Pt denies any presyncope or syncope. Pt feels poor balance when the vertigo occurs ,Pt states that vertigo usually last hours and sometimes last several seconds. Pt also feels a sense of overall un-wellness. Pt denies any chest pain or palpitation. Pt denies any anxiety or depression Pt denies any weight loss Pt denies any orthostasis. Pt started forklift driving since 6 months ago and he does do a lot of head turning which makes his symptoms worse. Pt states that he denies any pure vertigo feeling but he just feels that he is in poor balance and he is about to fall. t denies any LOC or actually falling or any presyncope or syncope. pt does have pure vertigo as well. vertigo1 Pt c/o intermitt ent vertigo feeling for the past 3 months. 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 Pt was feeling fine until 3 months ago. Pt feels intermittent vertigo feeling, worse when he turns his head. Pt denies any blurred vision Pt denies any ear pain Pt does have mild tinnitus right ear for the past year Pt does have loud noise exposure. Pt denies any hearing loss Pt has chronic sinus congestion. Pt denies any sore throat Pt also states that he has some mild vague headache about once per month with some pressure or throbbing nature Pt denies any photophobia or nausea. Pt has headache chronically without getting worse recently Pt feels nauseated during vertigo Pt denies any vomiting. Pt states that the vertigo occurs daily without any trigger. Pt denies any presyncope or syncope. Pt feels poor balance when the vertigo occurs ,Pt states that vertigo usually last hours and sometimes last several seconds. Pt also feels a sense of overall un-wellness. Pt denies any chest pain or palpitation. Pt denies any anxiety or depression Pt denies any weight loss Pt denies any orthostasis. GERD1 Pt has chronic G ERD Pt takes pepcid daily and doing ok pt denies any abd pain or weight loss . Instructions Date Instruction Additional Infor mation No Information Assessments Type Assessment Date assessment Epidemic vertigo Mental Status Date Cognitive Assessment Orientation - [place] ed to time, place, person, situation.
--- OUTSIDE RECORDS SUMMARY | 2025-02-04 16:39 | XMS_ITS | Clinical Summary ---
Author Organization [facility] Address [address] [place] [address] Care Team Providers Care Forming Department Supervisor Name Role Phone Unknown, Notinfile Unavailable Unavailable Feldman, Saray Turner MINIATURE SET DESIGNER Primary Care Provider Allergies No known active allergies Medications levETIRAcetam [...] Noted Date Diagnosed Date Seizure-like activity 06/25/2018 Surgical History Surgery Date Site/Laterality Comments REPAIR CRANIAL DEFECT SIMPLE Medical History Medical History Date Comments Seizures (HCC) Anxiety Social History Tobacco Use Types Packs/Day Years [...] on file Legal 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 Gender Identity Not on file Sexual Orientation Not on file Obstetrics History Last Filed Vital Signs Vital Sign Reading [...] 05/15/2024 6:07 PM CDT Plan of Treatment Health Maintenance Due Date Last Done Comments Depression Screening 1997 Hepatitis C Screening 1997 Regular Well Visit/Exam 18-64 2015 DTaP/Tdap/Td Vaccine (7 - Td or Tdap) 06/06/2021 06/06/2011, 06/26/2003, 03/06/2000, Additional history exists Influenza Vaccine (#1) 2024 09/21/2012 Hepatitis B Screening Completed 03/06/2000 , 07/25/1999, 1997, Additional history exists Varicella Vaccines Completed 06/06/2011, 07/18/2002 HPV Vaccines Completed 09/21/2012, 07/24/2011 Pneumococcal vaccine <65 Aged Out No longer eligible based on patient's age to complete this topic Insurance IDPA [employer] [place] [address] [place] Care Teams Forming Department Supervisor Relationship Specialty Start Date End Date Saray Feldman NP [address] [place] [address] PCP - General Nurse Practitioner 05/15/24 Unknown, Notinfile 06/09/18
--- OUTSIDE RECORDS SUMMARY | 2025-02-04 16:39 | XMS_ITS | Continuity of Care Document ---
Author Organization [facility] Address [address] [place] [address] Phone Care Team Providers Care Secondary Market Manager Name Role Phone Jos Collazo PT Unavailable Unavailable Procedures Procedure Date Work Conditioning Initial 2 hrs Jul--2 018 Work Conditioning Initial 2 hrs Sep-18-2 018 Work Conditioning Initial 2 hrs Jul-- 018 Work Conditioning add 1 hr Work Conditioning Initial 2 hrs Sep--2 018 Work Conditioning Initial 2 hrs Jul- 018 Work Conditioning add 1 hr Work Cond Initial Report WORK CONDITIONING ADD'L HRS WORK CONDITIONING INITIAL 2 HOURS Therapeutic Exercise Therapeutic Activities Neuromuscular Re-Ed Progress Note Therapeutic Exercise Neuromuscular Re-Ed Therapeutic Exercise Neuromuscular Re-Ed Therapeutic Exercise Therapeutic Activities Neuromuscular Re-Ed PT Evaluation High Complexity 8 Neuromuscular Re-Ed Advance Directives Directive Yes / No Effective Date File Name No Information Encounters Encounter Description Practice Location Reason(s) For Visit Diagnoses Date Provider Providers Copied on Encounter [facility] [address], [place], [place], [address], tel:[phone] [facility] [place] [facility] No Information 8 Zay Arguello. . [facility] [address], [place], [place], [address], [place] tel:[phone] [place] Unspecified injury of head, initial encounterCivil janusz activity done for income or payDizziness and giddiness Sep-2 8 Zay Arguello. . Referring Provider: Rosemarie Manley[address], [place], [address]. tel:[phone] [facility], [address] [place], [place] [address] [address], [place], [place], [address], [place] tel:[phone] [facility] Unspecified injury of head, initial encounterCivil janusz activity done for income or payDizziness and giddiness Sep-1 8 Zay Arguello. . Referring Provider: Rosemarie Manley[address], [place], [address]. tel:[phone] [facility], [address] [place], [place] [address], [place], [place], [address], [place] tel:[phone] [facility] Unspecified injury of head, initial encounterCivil janusz activity done for income or payDizziness and giddiness Sep-1 8 Zay Arguello. . Referring Provider: Rosemarie Manley[address], [place], [address]. tel:[phone] [facility], [address], [place], [place], [address], [place] tel:[phone] [facility] Unspecified injury of head, initial encounterCivil janusz activity done for income or payDizziness and giddiness Sep-1 8 Zay Arguello. . Referring Provider: Moi Felix [address], [place], [address]. tel:[phone] [facility], [address], [place], [place], [address], [place] tel:[phone] [facility] Unspecified injury of head, initial encounterCivil janusz activity done for income or payDizziness and giddiness Sep-1 3-201 8 Zay Arguello. . Referring Provider: Moi Felix, [address], [place], [address]. tel:[phone] [facility], [place], [place], [address], [place] tel:[phone] [facility] Unspecified injury of head, initial encounterCivil janusz activity done for income or payDizziness and giddiness 8 Zay Arguello. . Referring Provider: Moi Felix, [address], [place], [address]. tel:[phone] [facility] [address], [place], [place], [address], [place] tel:[phone] [place] Labyrinthine dysfunction, unspecified earConcussion without loss of consciousness, subs encntrUnspecif ied injury of head, subsequent encounter 8 [facility] , [place], [place]. Referring Provider: Moi Felix [address], [place], [address]. tel:[phone] [facility], [place], [place], [address], [place] tel:[phone] [place] Labyrinthine dysfunction, unspecified earConcussion without loss of consciousness, subs encntrUnspecif ied injury of head, subsequent encounter 8 [place], [place], [place]. Referring Provider: Moi Felix, [address], [place], [address]. tel:[phone] [facility], [place], [place], [address], [place] tel:[phone] [place] Labyrinthine dysfunction, unspecified earConcussion without loss of consciousness, subs encntrUnspecif ied injury of head, subsequent encounter 8 [facility] [place] [place]. Referring Provider: Moi Felix [address], [place], [address]. tel:[phone], [place], [place], [address], tel:[phone] [place] Labyrinthine dysfunction, unspecified earConcussion without loss of consciousness, subs encntrUnspecif ied injury of head, subsequent encounter 8 [facility]. Referring Provider: Moi Felix [address], [place], [address]. tel:[phone], [place], [place], [address], tel:[phone] [place] Labyrinthine dysfunction, unspecified earConcussion without loss of consciousness, subs encntrUnspecif ied injury of head, subsequent encounter 8 [facility]. Referring Provider: Moi Felix [address], [place], [address]. tel:[phone] Family History Family Member Type Diagnosis Age At Onset No Information Payers Payer name Insurance type Covered green party ID Authoriza tion(s) [employer] SP [id number] Social History Type Description Quantity Date Captured Comments Sex Male Smoking Status No Information Chief Complaint And Reason For Visit No Information Reason For Referral Reason For Referral No Information History Of Present Illness Encounter Date Complaint History Of Prese nt Illness No Information Functional Status Date Functional Assessmen t No Information Instructions Date Instruction Additional Infor mation No Information Assessments Type Assessment Date No Information Patient Care Teams Name Effective Dates (start - stop) Status Members No Information
[2025-02-04 16:42] VITALS: BP 132/83; PULSE 87; RESP 20; TEMP 36.8; O2SAT 99
--- OUTSIDE RECORDS SUMMARY | 2025-02-04 16:43 | XMS_ITS | Continuity of Care Document ---
Author Organization [facility] Address [address] [place] [address] [place] [address] Phone Care Team Providers Care Building Carpenter Name Role Phone Javid Abdi MD Unavailable [...] VISIT, EST OFFICE/OUTPATIENT VISIT, EST OFFICE/OUTPATIENT VISIT, [facility] Advance Directives Directive Yes / No Effective Date File Name No Information Encounters Encounter Description Practice Location Reason(s) For Visit Diagnoses Date Provider Providers Copied on Encounter OFFICE/OUTPAT IENT VISIT, [facility], [address], [place], [address], tel:[phone] [facility] vertigo1 (chief complaint) Epidemic vertigo Jin Umana [address], [address], [place], [address], [place]. tel:[phone] OFFICE/OUTPAT IENT VISIT, [facility], [address], [place], [address], [place] tel:[phone] [facility] vertigo1 (chief complaint) Epidemic vertigo Jin Umana [address], [place], [place], [address], . tel:[phone] OFFICE/OUTPAT IENT VISIT, [facility], [address], [place], [address], tel:[phone] [facility] vertigo1 (chief complaint) Epidemic vertigo Jin Hua. [address], [place], [place], [address], [place]. tel:[phone] OFFICE/OUTPAT IENT VISIT, [facility], [address] [place], [place], [address], tel:[phone] [facility] vertigo1 (chief complaint)G ERD1 (chief complaint) Epidemic vertigoGERD w/o esophagitis Jin Hua. [address], [place], [address], . tel:[phone] Family History Family Member Type Diagnosis Age [...] Pt denies any syncope. 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 Pt [...] Pt denies any syncope. 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 Pt [...] pt does have pure vertigo as well. GERD1 Pt has chronic G ERD Pt takes pepcid daily and doing ok pt denies any abd pain or weight loss . vertigo1 Pt c/o intermitt ent vertigo feeling [...] any weight loss Pt denies any orthostasis. Instructions Date Instruction Additional Infor mation No Information Assessments Type Assessment Date assessment Epidemic vertigo Mental Status Date Cognitive Assessment Orientation - [place] ed to time, place, person, situation.
--- OUTSIDE RECORDS SUMMARY | 2025-02-04 16:43 | XMS_ITS | Continuity of Care Document ---
Author Organization [facility] Address [address] [place] [address] Phone Care Team Providers Care Clinical Specialist Medical Device Name Role Phone Jos Collazo PT Unavailable [...] Diagnoses Date Provider Providers Copied on Encounter [facility] [address], [place], [place], [address], tel:[phone] [employer] [facility] [place] [facility] No Information 8 Zay Arguello. . [facility] [address], [place], [place], [address], [place] tel:[phone] [place] Unspecified injury of head, initial encounterCivil janusz activity done for income or payDizziness and giddiness Sep-2 8 aZy Arguello. . Referring Provider: Rosemarie Manley[address], [place], [address]. tel:[phone] [facility], [address] [place], [place] [address], [place], [place], [address], [place] tel:[phone] [facility] Unspecified injury of head, initial encounterCivil janusz activity done for income or payDizziness and giddiness Sep-1 8 Zay Arguello. . Referring Provider: Rosemarie Manley[address], [place], [address]. tel:[phone] [facility], [address] [place], [place] [address] [address], [place], [place], [address], [place] tel:[phone] [facility] Unspecified injury of head, initial encounterCivil janusz activity done for income or payDizziness and giddiness Sep-1 8 Zay Arguello. . Referring Provider: Rosemarie Man[address], [place], [address]. tel:[phone] [facility], [address], [place], [place], [address], [place] tel:[phone] [facility] Unspecified injury of head, initial encounterCivil janusz activity done for income or payDizziness and giddiness Sep-1 8 Zay Arguello. . Referring Provider: Moi Felix [address], [place], [address]. tel:[phone] [facility], [address], [place], [place], [address], [place] tel:[phone] [facility] Unspecified injury of head, initial encounterCivil janusz activity done for income or payDizziness and giddiness Sep-1 3-201 8 Zay Arguello. . Referring Provider: Moi Felix, [address], [place], [address]. tel:[phone] [facility], [place], [place], [address], [place] tel:[phone] [facility] Unspecified injury of head, initial encounterCivil janusz activity done for income or payDizziness and giddiness 8 Zay Arguello. . Referring Provider: Moi Felix, [address], [place], [address]. tel:[phone] [facility] [address], [place], [place], [address], [place] tel:[phone] [place] Labyrinthine dysfunction, unspecified earConcussion without loss of consciousness, subs encntrUnspecif ied injury of head, subsequent encounter 8 [facility] , [place], [place]. Referring Provider: Moi Felix [address], [place], [address]. tel:[phone] [facility], [place], [place], [address], [place] tel:[phone] [place] Labyrinthine dysfunction, unspecified earConcussion without loss of consciousness, subs encntrUnspecif ied injury of head, subsequent encounter 8 [place], [place], [place]. Referring Provider: Moi Felix, [address], [place], [address]. tel:[phone] [facility], [place], [address], [place] tel:[phone] [place] Labyrinthine dysfunction, unspecified earConcussion without loss of consciousness, subs encntrUnspecif ied injury of head, subsequent encounter 8 [facility] [place] [place]. Referring Provider: Moi Felix [address], [place], [address]. tel:[phone], [place], [place], [address], tel:[phone] [place] Labyrinthine dysfunction, unspecified earConcussion without loss of consciousness, subs encntrUnspecif ied injury of head, subsequent encounter 8 [facility]. Referring Provider: Moi Felix [address], [place], [address]. tel:[phone], [place], [place], [address], tel:[phone] [place] Labyrinthine dysfunction, unspecified earConcussion without loss of consciousness, subs encntrUnspecif ied injury of head, subsequent encounter 8 [facility]. Referring Provider: Moi Felix [address], [place], [address]. tel:[phone] Family History Family Member Type Diagnosis Age At Onset No Information Payers Payer name Insurance type Covered alliance party ID Authoriza tion(s) [employer] SP [id number] Social History Type Description Quantity Date Captured [...]
--- NOTE | 2025-02-04 17:14 | ED_ITS ---
HPI - Wound/Laceration General Chief Complaint: Wound/Laceration Stated Complaint: Injury to Left Hand/Laceration Time Seen by Provider: 02/04/25 17:02 Source: patient and RN notes reviewed Mode of arrival: ambulatory Limitations: no limitations History of Present Illness HPI narrative: Patient presents today complaining of an injury to the right hand. He was pushing a mattress up some stairs when it fell, came down, and 1 of the coils struck him in the right palm a approximately 2 hours prior to arrival. He has not tried any [id number] medication for symptoms prior to arrival and currently rates his pain 610. He is up-to-date on his tetanus vaccine. Related Data Home Medications ?Medication ?Instructions ?Recorded ?Confirmed ?Last Taken ?Type No Home Medications 02/04/25 02/04/25 Unknown History Allergies Allergy/AdvReac Type Severity Reaction Status Date / Time No Known Allergies Allergy Verified 02/04/25 16:47 Review of Systems Review of Systems: CONSTITUTIONAL: Denies body aches, fever, chills, or sweats. EYES: Denies visual changes, redness, or discharge. ENT: Denies rhinorrhea, congestion, sore throat, or otalgia. CARDIOVASCULAR: Denies chest pain, palpitations, or edema. RESPIRATORY: Denies cough or dyspnea. GASTROINTESTINAL: Denies abdominal pain, nausea, vomiting, or diarrhea. GENITOURINARY: Denies dysuria or hematuria. SKIN: + right hand injury MUSCULOSKELETAL: Denies back pain, joint pain, or myalgia. NEUROLOGIC: Denies headache, numbness, tingling, or weakness. PSYCH: Denies depression or anxiety. [facility] Past Medical History Medical History No significant past medical history Vertigo Back injury Surgical History Surgical History No history of previous surgery Family History Family History Grandparent , maternal grandmother had diabetes Diabetes mellitus Social History Social History Smoking status: Never smoker Alcohol intake: never Alcohol use details: denies alcohol use Substance use: never Substance use type: does not use Living arrangements: alone Occupation/Education: occupation Gender identity (if verbalized by the patient): Male Spiritual care concerns: No Comments At time of signature, I have reviewed and agree with nursing past medical, surgical, social and family history unless otherwise noted. Please see nursing chart for further information. There is no relevant family history pertinent to the presenting complaint Exam Narrative: GENERAL: Well-appearing, well-nourished, and in no acute distress. HEAD: Normocephalic, atraumatic. EYES: EOMI. No redness or drainage. Conjunctivae normal. ENT: Mucous membranes pink and moist. NECK: Normal AROM. CHEST: No respiratory distress. EXTREMITIES: Right hand: 4 mm superficial abrasion to the right thenar eminence with surrounding localized edema and ecchymosis. Area is tender to palpation. No active bleeding. Pain to the affected area with movement of. Distal sensation intact. Capillary refill. SKIN: Warm, dry, no rash. Capillary refill normal. Normal skin turgor. NEURO: No focal deficits. Alert and oriented x3. Gait steady. PSYCH: Normal affect. No signs of depression or anxiety. Course Course Emergency Course: Area irrigated with saline and dressed with Band-Aid. Level of Care: Express Care Visit Vital Signs Vital signs: Vital Signs Temperature 98.3 F 02/04/25 16:42 Pulse Rate 87 02/04/25 16:42 Respiratory Rate 20 02/04/25 16:42 Blood Pressure 132/83 02/04/25 16:42 Pulse Oximetry 99 02/04/25 16:42 Oxygen Delivery Room Air 02/04/25 16:42 Temperature 98.3 F 02/04/25 16:42 Pulse Rate 87 02/04/25 16:42 Respiratory Rate 20 02/04/25 16:42 Blood Pressure 132/83 02/04/25 16:42 Pulse Oximetry 99 02/04/25 16:42 Oxygen Delivery Room Air 02/04/25 16:42 MDM - Wound/Laceration MDM Narrative Medical decision making narrative: Area cleansed and dressed. Care instructions given. Prophylactic antibiotics are not recommended at this time. Anticipatory guidance given. Differential Diagnosis Differential diagnosis: Likely laceration, abrasion and avulsion of skin Critical Care Time Critical Care Time Critical Care Time: No Discharge Plan Discharge Clinical Impression: Abrasion of hand, right Qualifiers: Encounter type: initial encounter Qualified Code(s): S60.511A - Abrasion of right hand, initial encounter Patient Disposition: Home, Self-Care Condition: Stable Instructions: Abrasion (ED) Additional Instructions: Please wash daily with soap and water and keep covered until scabbed over. The swelling and bruising will resolve with time. Apply ice and taking anti- inflammatory such as Aleve or ibuprofen to help with your discomfort. Follow-up with your PCP with any concerns or signs of infection such as redness, increased pain, or pus drainage. Your blood pressure was elevated above 120/80 today at Urgent Care. This puts you above the threshold for follow up. Please schedule a followup visit with your personal physician as soon as possible, for further evaluation and treatment. Even blood pressure exceeding 120/80 may indicate pre-hypertension. Patient Language: Mohawk Prescriptions: No Action No Home Medications Follow-up/Referrals: PHYSICIAN,GARMENT SEWER HAND [Primary Care Provider] - Time of Disposition: 17:20
--- NOTE | 2025-02-04 17:17 | PC.NURSE ---
stated tetanus updated 2 yrs ago.
== END 2025-02-04 17:22 | disposition home or self-care (01) ==
PROVIDERS: Emergency Provider Nurse Practitioner
DX: S60.511A Abrasion of right hand, initial encounter (principal); W22.8XXA Striking against or struck by other objects, initial encounter
CPT/HCPCS: 99212; G0463